=== PATIENT | female | born 1930 | race Caucasian/White ===

== ENCOUNTER 2017-01-01 15:30 | Inpatient (IN) | payer OTHER ==
[~2017-01-01] VITALS: Ht 152.4 cm; Wt 69.5 kg
[2017-01-01] MEDS ORDERED: SOD CHLORIDE 0.9% 1,000 ML IV STA (15:46)
[2017-01-01 15:48] VITALS: Ht 152.4 cm; Wt 69.5 kg
--- NOTE | 2017-01-01 15:56 | ERD ---
ER Documentation Chief Complaint Chief Complaint ALOC found down at home x30min prior to arrival responsive to pain only HPI This 86-year-old female was found down 45 minutes ago by family with unknown last known well time. Per medics arrived and she responds to pain only. They have noted decerebrate posturing. Blood pressure was very high. No other history is provided currently. ROS Unobtainable Allergies Allergies: Coded Allergies: No Known Allergy (Unverified , 01/01/17) Physical Exam Vitals Vital Signs Date Time Temp Pulse Resp B/P Pulse Ox O2 Delivery O2 Flow Rate FiO2 01/01/17 20:14 97.2 76 22 140/82 99 Mechanical Ventilator 01/01/17 19:45 97.2 76 22 141/56 98 Mechanical Ventilator 01/01/17 19:30 97.2 76 22 147/53 98 Mechanical Ventilator 01/01/17 19:15 97.2 74 22 132/54 98 Mechanical Ventilator 01/01/17 19:00 97.2 81 22 134/59 98 Mechanical Ventilator 01/01/17 18:56 80 22 98 100 01/01/17 18:45 96.9 82 20 141/81 100 Mechanical Ventilator 01/01/17 18:18 93 23 218/83 100 Mechanical Ventilator 01/01/17 18:16 94 22 100 100 01/01/17 17:38 91 23 230/116 100 Mechanical Ventilator 01/01/17 17:20 81 22 100 100 01/01/17 17:15 76 22 224/92 100 Mechanical Ventilator 01/01/17 15:48 96.9 70 26 205/107 100 Physical Exam Const: [] Moderate distress, unresponsive, tachypneic Head: Atraumatic Eyes: Normal Conjunctiva, pupils 4 mm and nonreactive, roving eye movements. ENT: Normal External Ears, Nose and Mouth. Neck: Full range of motion..~ No meningismus. Resp: Clear to auscultation bilaterally, tachypnea Cardio: Regular tachycardia no murmurs Abd: Soft,, non distended. Normal bowel sounds Skin: No petechiae or rashes Back: No midline or flank tenderness Ext: No cyanosis, or edema Neur: Decerebrate posturing, no corneal reflex Result Diagram: 01/01/17 1545 01/01/17 1545 Results 24 hrs Laboratory Tests Test 01/01/17 15:45 01/01/17 17:24 01/01/17 17:25 White Blood Count 7.810^3/ul Red Blood Count 4.3110^6/ul Hemoglobin 9.1g/dl Hematocrit 30.0% Mean Corpuscular Volume 69.6fl Mean Corpuscular Hemoglobin 21.1pg Mean Corpuscular Hemoglobin Concent 30.3g/dl Red Cell Distribution Width 14.4% Platelet Count 05231^3/UL Mean Platelet Volume 9.6fl Neutrophils % 51.4% Lymphocytes % 33.8% Monocytes % 8.4% Eosinophils % 5.0% Basophils % 0.8% Nucleated Red Blood Cells % 0.0/100WBC Neutrophils # 4.010^3/ul Lymphocytes # 2.610^3/ul Monocytes # 0.710^3/ul Eosinophils # 0.410^3/ul Basophils # 0.110^3/ul Nucleated Red Blood Cells # 0.010^3/ul Prothrombin Time 12.9Sec Prothrombin Time Ratio 1.0 INR International Normalized Ratio 0.97 Activated Partial Thromboplast Time 25.8Sec Sodium Level 144mmol/L Potassium Level 4.7mmol/L Chloride Level 111mmol/L Carbon Dioxide Level 19mmol/L Anion Gap 19 Blood Urea Nitrogen 34mg/dl Creatinine 1.49mg/dl Glucose Level 144mg/dl Bedside Glucose 126mg/dL Hemoglobin A1c 5.1% Calcium Level 9.0mg/dl Troponin I < 0.012ng/ml Urine Color COLORLESS Urine Clarity CLEAR Urine pH 7.0 Urine Specific [place] 1.006 Urine Ketones TRACEmg/dL Urine Nitrite NEGATIVEmg/dL Urine Bilirubin NEGATIVEmg/dL Urine Urobilinogen NEGATIVEmg/dL Urine Leukocyte Esterase NEGATIVELeu/ul Urine Microscopic RBC 1/HPF Urine Microscopic WBC 0/HPF Urine Hemoglobin 1+mg/dL Urine Glucose 1+mg/dL Urine Total Protein 1+mg/dl Urine Opiates Screen Negative Urine Barbiturates Negative Urine Amphetamines Screen Negative Urine Benzodiazepines Screen Negative Urine Cocaine Screen Negative Urine Cannabinoids Negative Current Medications Medications (Trade) Dose Ordered Sig/Mahad Route PRN Reason Start Time Stop Time Status Last Admin Dose Admin Sodium Chloride (NS) 1,000 ml @ 1,000 mls/hr Q1H STAT IV 01/01/17 15:46 01/01/17 16:45 DC 01/01/17 16:07 Hydralazine HCl 10 mg 10 mg ONCE ONCE IV 01/01/17 16:00 01/01/17 16:01 DC 01/01/17 16:07 Mannitol 250 ml @ 0 mls/hr ONCE ONCE IV 01/01/17 16:00 01/01/17 16:01 DC 01/01/17 17:15 Propofol (Diprivan) 100 ml @ 0 mls/hr TITRATE ONCE IV 01/01/17 16:00 01/01/17 16:01 DC 01/01/17 16:16 Hydralazine HCl 10 mg 10 mg ONCE ONCE IV 01/01/17 18:00 01/01/17 18:01 DC 01/01/17 17:48 Nicardipine HCl 200 ml @ 50 mls/hr TITRATE IV 01/01/17 18:00 01/01/17 18:11 Nicardipine HCl/ Sodium Chloride (Cardene Iv/NS) 250 ml @ 50 mls/hr PER PROTOCOL IV 01/01/17 20:00 Acetaminophen (Tylenol Tab) 650 mg Q4H PRN PO TEMP GREATER THAN 99.6F 01/01/17 20:00 Ondansetron HCl (Zofran Inj) 4 mg Q6H PRN IV NAUSEA AND/OR VOMITING 01/01/17 20:00 Acetaminophen (Tylenol Liquid) 650 mg Q6H PRN PO PAIN LEVEL 1-3 OR FEVER 01/01/17 20:00 Acetaminophen (Tylenol Supp) 650 mg Q4H PRN [place] PAIN LEVEL 1-3 OR FEVER 01/01/17 20:00 Morphine Sulfate (morphine) 2 mg Q4H PRN IV PAIN LEVEL 7-10 01/01/17 20:00 Lorazepam (Ativan) 1 mg Q2H PRN IV SEIZURES 01/01/17 20:00 Docusate Sodium (Colace) 100 mg Q12H PRN PO CONSTIPATION 01/01/17 20:00 Magnesium Hydroxide (Milk Of Mag) 30 ml DAILY PRN PO CONSTIPATION 01/01/17 20:00 Bisacodyl (Dulcolax Supp) 10 mg DAILY PRN [place] CONSTIPATION 01/01/17 20:00 Famotidine (Pepcid Iv) 20 mg Q24H IV 01/01/17 21:00 Procedures/MDM Catastrophic intracranial hemorrhage. On arrival the patient was immediately taken to CT and then intubated for airway protection and hyperventilation. IV mannitol was given and head of bed was immediately elevated. Repeat neuro exam showed unequal pupils with one pupil was 4 mm and the other one is 3 mm. I spoke with Dr. Reyes, who reviewed the films and that combined with unequal pupils believes that this patient is already herniated. He spoke with the family. Patient ws also extremely hypertensive. Given a dose of adjustments temporary load her blood pressure which returned. She is given another dose of hydralazine then I did in a car to pain drip. Family does not want to make a decision about withdrawing care at this time as relayed by Dr. Reyes. Be admitted to the ICU for further care. , is admitting saw the patient at the bedside After intubation patient was initially intubated the right mainstem bronchus with atelectasis of left lung. Tube was withdrawn and showed improving aeration. Tube was then again further withdrawn show good aeration of the left lung EKG interpretation: Paced rhythm rate of 61, normal axis, no ST elevations or depressions concerning for acute ischemia. Possible biphasic T waves or U waves in precordial leads. youth nutritional monitor interpretation: Paced rhythm with no other arrhythmia Chest x-ray interpretation: Left lung l opacified with ET tube in the right mainstem bronchus., No pneumothorax, no widened mediastinum, no fractures Chest x-ray interpretation #2:: Improved aeration of left lung. Tubes still is very close to the right mainstem bronchus and I believe needs to be withdrawn, no pneumothorax, no infiltrates, no fractures. CT head interpretation: Large intracranial hemorrhage as well as small subdural hemorrhage, one-point centimeter midline shift, ET intubation note: Preoxygenated with bag mask ventilation, size 7.5 ET tube was easily introduced through visualized cords using a MAC 4 blade. Confirmed by end-tidal CO2 change. Patient tolerated procedure well there no complications [id number] after procedure. Postintubation checks x-ray shows tube in the right mainstem bronchus. Care time greater than 35 minutes: This includes treatment of intracranial hemorrhage with mass-effect and severe hypertension, ventilator management and use of hyperventilation, use of mannitol, use of propofol drip, use of 2 doses of hydralazine and nicardipine drip for severe hypertension, discussion with family, discussion with neurosurgeons, discussion with admitting doctor, chart review. This does not include any billable procedures. Departure Diagnosis: Primary Impression: Intracranial hemorrhage Additional Impressions: Midline shift of brain Hypertensive crisis Renal insufficiency Condition: Critical KAMRAN MI DO Jan 01, 2017 15:56
[2017-01-01] MEDS ORDERED: ETOMIDATE 20 MG INJ ONE (16:00)
[2017-01-01] MEDS ORDERED: ROCURONIUM 50 MG INJ ONE (16:00)
[2017-01-01] MEDS ORDERED: MANNITOL 20% 250 ML IV ONE (16:00)
[2017-01-01] MEDS ORDERED: PROPOFOL 100 ML IV ONE (16:00)
[2017-01-01] MEDS ORDERED: hydrALAzine 20 MG INJ IV ONE ×2 (16:00→18:00)
--- NOTE | 2017-01-01 16:06 | RADRPT ---
PROCEDURE: CT Brain without contrast. CLINICAL INDICATION: Code stroke TECHNIQUE: A CT of the brain was performed on a multidetector CT scanner utilizing axial sections from the skull base through the vertex without contrast. Images were reviewed on a high-resolution [employer] workstation. Exam CTDI = 44.97 mGy and the DLP = 720.23 mGy-cm. One or more of the following dose reduction techniques were used: Automated exposure control Adjustment of the mA and/or kV according to patient size. Use of iterative reconstruction technique. COMPARISON: None available FINDINGS: There is a large intraparenchymal hematoma in the left frontal parietal lobe measuring 7.6 x 5.3 x 6 cm (AP x cc x transverse. Multiple smaller surrounding intraparenchymal hemorrhage are seen in the right frontal and left parietal lobes. There is significant mass effect upon the left lateral ventri kavita with 1.5 cm rightward midline shift. There is subfalcine herniation. Suprasellar cistern is del castillo nt. There is thin left frontal subdural hemorrhage measures up to 2 mm in thickness. There is mild v asogenic edema around the dominant intraparenchymal hemorrhage. There is no intraventricular hemorrh age. There is mild dilatation of the right lateral ventricle. The density of the brain is normal an d the avitia/white matter differentiation is well preserved. Mild patchy diffuse deep white matter mi croangiopathic ischemic change is seen. The osseous structures are unremarkable. Paranasal sinus es are clear. Vascular calcifications are identified. IMPRESSION: 1. Large intraparenchymal hematoma in the left frontal parietal lobe measuring 5.3 x 6 x 7.6 cm. Mu ltiple additional smaller intraparenchymal hemorrhages are seen in the left frontal and left parieta l lobes. Mild surrounding vasogenic edema with significant mass effect upon the left lateral ventric le and 1.5 cm rightward midline shift. No intraventricular hemorrhage. 2. Thin left frontal subdural hemorrhage measures up to 2 mm in thickness. 3. Prominent temporal horn of the right lateral ventricle suggesting trapped ventricle. 4. Mild to moderate chronic microvascular ischemic changes. 5. Intracranial atherosclerosis. RPTAT: BB .Altagracia Deleon MD, MD Date Time Electronically viewed and signed by .Altagracia Deleon MD, on 01/01/2017 16:05 .O/
--- NOTE | 2017-01-01 16:40 | RADRPT ---
PROCEDURE: XR Chest. CLINICAL INDICATION: Status post intubation TECHNIQUE: Single portable view of the chest was obtained COMPARISON: none FINDINGS: There is a new endotracheal tube within the right mainstem bronchus. There is mild cardiomegaly. Thoracic aorta is calcified. There are patchy left upper lobe and left lower lobe infiltrates and left pleural effusion. There is a left-sided pacemaker in place. RPTAT: AA IMPRESSION: New endotracheal tube within the right mainstem bronchus. Retraction of 5 cm is recommended. Patchy left lung infiltrates and left pleural effusion. Mild cardiomegaly. A call report was made and the findings discussed with Joshua Harden at 01/01/2017 4:31:21 PM. .Lavon Moseley MD, MD Date Time Electronically viewed and signed by .Lavon Moseley MD, on 01/01/2017 16:39 .S/
--- NOTE | 2017-01-01 18:03 | RADRPT ---
PROCEDURE: XR Chest. CLINICAL INDICATION: Check endotracheal tube position. TECHNIQUE: Single frontal view. COMPARISON: 01/01/2017. 1618 hours. FINDINGS: The endotracheal tube has been retracted but the tip is still in the right mainstem bronchus. This s hould be pulled back approximately 2 cm. There is improved aeration of the left lung. However, there is still asymmetry with decreased aeration of the left lung. There is diffuse interstitial disease bilaterally consistent with pulmonary edema. The heart size is normal. There is calcification in the aorta consistent with atherosclerosis. There is a left-sided dual lead permanent pacemaker. There is no right pleural effusion. There is a small left pleural effusion. There is no pneumothorax. IMPRESSION: 1. The endotracheal tube should be retracted an additional 2 cm. 2. Improved aeration of the left lung. 3. Pulmonary edema. 4. Left-sided dual lead permanent pacemaker. 5. Small left pleural effusion. 6. Otherwise unremarkable chest radiograph. Call report: A call report of the findings was made to Dr. Echavarria on 01/01/2017 at 1805 hours. RPTAT: QQ .Rahul Kraft MD, MD Date Time Electronically viewed and signed by .Rahul Kraft MD, MD on 01/01/2017 18:03 .R/
[2017-01-01] MEDS: niCARdipine-NS 0.1MG/ML DRIP 200 ML IV SCH (18:11)
--- NOTE | 2017-01-01 19:12 | CONS ---
Date/Time of Note Date/Time of Note DATE: 01/01/17 TIME: 17:45 Assessment/Plan Assessment/Plan Additional Assessment/Plan Date of note: 01/01/2017 I was contacted by Dr. Echavarria in the emergency department regarding a 86-year- old right handed female with past medical history significant for hypertension, hypercholesterolemia, cardiac arrhythmia status post pacemaker placement who was found unresponsive several hours ago by her family. At the time of arrival to the emergency department by paramedics the patient was found to be extensor posturing and pupils on the left are 4-5mm unreactive and on the right 3-4mm and unreactive. The patient was intubated for airway protection but appears to have some breathing over the vent. I immediately reviewed the patient's CT of the head without contrast that shows a large left frontoparietal temporal intraparenchymal hemorrhage with close to 1.5 cm [id number] midline shift with left uncal herniation and effacement of the basal cisterns consistent with impending transtentorial herniation. There are several family members in the emergency department including the patient's grandson, Los who identified himself as the speaker for the family says he says he is the most educated out of all the family members. Los lives with the patient and tells me that she is able to do some basic activities of daily living on her own however mostly today she sitting down and watching television. A complete past medical history of the patient is unknown by the family members and unsure the reason for the patient's aspirin that she was taking in the past. However she has not been taking any aspirin recently. I Had an extensive discussion with Los regarding the devastating hemorrhage that his grandmother has sustained on the dominant side of the brain responsible for speech and understanding. I have also explained to the grandson that the hemorrhage has caused a very large left- to-right midline shift and the brain causing brain herniation and severe and usually irreversible injury to the brain stem as demonstrated by the patient's very poor presenting neurologic exam as discussed above. Unfortunately, there is no neurosurgical intervention possible to undo the devastating injury that has occurred to the patient as a result of the hemorrhagic stroke. There is no neurosurgical intervention possible to allow the patient to have any reasonable chance of meaningful recovery as the patient's grandson and family are hoping that she would be able to go back home and watch TV and do the normal activities that she used to do. Los and the family appear to however be very reasonable as to their expectations. When I asked what the patient's wishes would've been in a terrible situation such as this, Los tells me that "she would want to go to [facility]." He has also asked me as to what are the other choices aside from surgery. I have explained to him that at this point the point is receiving supportive care including ventilatory support. He tells me that being on the ventilator is most likely what the patient would have wanted and the family is leaning toward comfort measures. I have explained to Los that he and the family can think about this choice more and do not have to make a choice right away. In addition, I have indicated to Los that the patient's serum sodium is already 144 (greater than 140) and further hypertonic saline treatment that can be started in cases of relative hyponatremia would not be of benefit in this case. Luis Antonio is very understanding and appreciative of the explanations. He and his family can contact me at anytime if I can be of any further help. SHERIN BALBUENA MD Jan 01, 2017 19:12
[2017-01-01] MEDS ORDERED: ACETAMINOPHEN 650MG/20.3ML CUP PO PRN (20:00)
[2017-01-01] MEDS ORDERED: MAGNESIUM HYDROXIDE 30ML CUP PO PRN (20:00)
[2017-01-01] MEDS ORDERED: BISACODYL 10 MG SUPP PR PRN (20:00)
[2017-01-01] MEDS ORDERED: ONDANSETRON 4 MG INJ IV PRN (20:00)
[2017-01-01] MEDS ORDERED: DOCUSATE SODIUM 100 MG CAP PO PRN (20:00)
[2017-01-01] MEDS ORDERED: LORAZEPAM 2 MG INJ IV PRN (20:00)
[2017-01-01] MEDS ORDERED: ACETAMINOPHEN 325 MG TAB PO PRN (20:00)
[2017-01-01] MEDS ORDERED: ACETAMINOPHEN 650 MG SUPP PR PRN (20:00)
[2017-01-01] MEDS ORDERED: morphine 2 MG INJ IV PRN (20:00)
--- NOTE | 2017-01-01 20:03 | HP ---
Date/Time of Note Date/Time of Note DATE: 01/01/17 TIME: 19:41 Assessment/Plan VTE Prophylaxis VTE Prophylaxis Intervention: SCD's Lines/Catheters IV [facility] (from [facility] Saline Lock Assessment/Plan Assessment/Plan 86-year-old female with: 1. Large left frontoparietal temporal intraparenchymal hemorrhage with 1.5 cm left to right midline shift, left uncal herniation and impending transtentorial herniation. Current neurological status extremely poor, prognosis dismal, however the patient already intubated, family still figuring out goals of care. Continue supportive care, patient on nicardipine drip for blood pressure control with goal systolic blood pressure less than 140 Continue mechanical ventilation Monitor for seizures Keep Na greater than 140 Dr Espana following 2. Hypertensive emergency with unfortunately catastrophic large left frontoparietal temporal intraparenchymal hemorrhage with impending transtentorial herniation Continue nicardipine drip, additional as needed labetalol or hydralazine if needed Goal systolic blood pressure less than 140 3. Acute respiratory failure, insetting of severe encephalopathy secondary to intracranial bleed. Patient intubated primarily for airway protection. 4. Arrhythmia, status post pacemaker, patient is currently a paced. 5. Acute kidney injury versus chronic kidney disease, it is unclear what the patient baseline renal function is. For now avoiding hypotonic or isotonic fluids. Goal to maintain sodium level of 140. If sodium drops any further will need hypertonic saline. Follow-up in a.m. lab Prophylaxis: Pepcid for GI prophylaxis, SCDs to lower extremity for DVT prophylaxis Disposition: Follow-up with family in a.m. regarding goals of care, will encourage comfort measures. In the meantime patient is still full code but likely to decompensate further as she is herniating. Family is aware. Dr. Espana following, Dr. Mendoza to be consulted for vent management. HPI/ROS Admit Date/Time Admit Date/Time Hx of Present Illness Chief complaint: Unresponsiveness History of presenting illness: This is a 86-year-old female with unknown past medical history except for noted pacemaker in place for likely history of arrhythmia, likely also hypertension, brought in by family after being found unresponsive for 45 mins, also found to be in hypertensive emergency with systolic blood pressures above 200. Patient is obviously unable to give any history, also family at the bedside does not seem to be aware of much of her medical illness. The patient's grandson son who is Chinese-speaking and spokesman for the family has given most of the history. During my exam the grandson was not present therefore history is obtained from documentation from neurosurgery, Dr. Espana, and ER physician. Per records, again the patient does have a pacemaker, has been on aspirin apparently for unclear reason as an outpatient, she was found this afternoon unresponsive by family in front of the TV. It seems like she was unresponsive for almost an hour. Per EMS documentation the patient was withdrawing to pain upon arrival but otherwise unresponsive. Per emergency department documentation upon arrival in the ER, the patient was noted to have decerebrate posturing, mostly nonreactive pupils and no corneal reflex. She was intubated for airway protection, she is currently breathing over the vent and was started on propofol. She is also on nicardipine drip for blood pressure control. CAT scan of the brain showed a large left frontoparietal temporal intraparenchymal hemorrhage with close to 1.5 cm left to right midline shift, left uncal herniation and effacement effacement of the basal cisterns consistent with impending transtentorial herniation. Patient has been evaluated by Dr. Espana from neurosurgery, at this point there is no neurosurgical intervention that can be offered. Patient's prognosis is dismal, she does have a massive, catastrophic intracranial bleed with extremely poor neurological status. Dr. Espana has talked to the family, and specifically to [place] the patient's grandson, for now the family is discussing goal of care and possible withdrawal of care and comfort measures. In the meantime the patient remains full code, she is intubated and again on nicardipine drip for blood pressure control and propofol. ROS Unable to obtain. PMH/Family/Social Past Medical History Unfortunately very minimal information regarding past medical history, family does not seem to be very familiar, patient however is noted to have a pacemaker. Past Surgical History Status post pacemaker placement Family History Significant Family History: no pertinent family hx Social History Unknown Smoking Status: Never smoker Exam/Review of Systems Vital Signs Vitals Vital Signs Date Time Temp Pulse Resp B/P Pulse Ox O2 Delivery O2 Flow Rate FiO2 01/01/17 18:56 80 22 98 100 01/01/17 18:45 96.9 141/81 Mechanical Ventilator Exam Constitutional: frail, other (Unresponsive) ENMT: other (Left pupil fixed approximately 5 mm, right 2 pills seems to be fixed also approximately 2-3 mm) Respiratory: clear to auscultation, other (Mechanical ventilation) Cardiovascular: nl pulses, other (Paced rhythm, left upper chest pacemaker noted .), regular rate and rhythm Gastrointestinal: non-tender, soft Musculoskeletal: nl extremities to inspection, other (No edema, clubbing or cyanosis) Extremities: normal pulses Neurological: lethargic, other (Intubated, on propofol, seems to be posturing on and off.) Labs Result Diagram: 01/01/17 1545 01/01/17 1545 Medications Medications Current Medications Nicardipine HCl (Cardene Iv) 200 ml @ 50 mls/hr TITRATE IV Last administered on 01/01/17t 18:11; Admin Dose 50 MLS/HR; Start 01/01/17 at 18:00 Acetaminophen (Tylenol Tab) 650 mg Q4H PRN PO TEMP GREATER THAN 99.6F; Start 01/01/17 at 20:00; Status UNV Ondansetron HCl (Zofran Inj) 4 mg Q6H PRN IV NAUSEA AND/OR VOMITING; Start 01/01/17 at 20:00; Status UNV Acetaminophen (Tylenol Liquid) 650 mg Q6H PRN PO PAIN LEVEL 1-3 OR FEVER; Start 01/01/17 at 20:00; Status UNV Acetaminophen (Tylenol Supp) 650 mg Q4H PRN [place] PAIN LEVEL 1-3 OR FEVER; Start 01/01/17 at 20:00; Status UNV Morphine Sulfate (morphine) 2 mg Q4H PRN IV PAIN LEVEL 7-10; Start 01/01/17 at 20:00; Status UNV Lorazepam (Ativan) 1 mg Q2H PRN IV SEIZURES; Start 01/01/17 at 20:00; Status UNV Docusate Sodium (Colace) 100 mg Q12H PRN PO CONSTIPATION; Start 01/01/17 at 20: 00; Status UNV Magnesium Hydroxide (Milk Of Mag) 30 ml DAILY PRN PO CONSTIPATION; Start at 20:00; Status UNV Bisacodyl (Dulcolax Supp) 10 mg DAILY PRN [place] CONSTIPATION; Start 01/01/17 at 20 :00; Status UNV Famotidine (Pepcid Iv) 20 mg Q12 IV ; Start 01/01/17 at 21:00; Status UNV Procedures Procedures PROCEDURE: CT Brain without contrast. CLINICAL INDICATION: Code stroke TECHNIQUE: A CT of the brain was performed on a multidetector CT scanner utilizing axial sections from the skull base through the vertex without contrast. Images were reviewed on a high-resolution PACS workstation. Exam CTDI = 44.97 mGy and the DLP = 720.23 mGy-cm. One or more of the following dose reduction techniques were used: Automated exposure control Adjustment of the mA and/or kV according to patient size. Use of iterative reconstruction technique. COMPARISON: None available FINDINGS: There is a large intraparenchymal hematoma in the left frontal parietal lobe measuring 7.6 x 5.3 x 6 cm (AP x cc x transverse. Multiple smaller surrounding intraparenchymal hemorrhage are seen in the right frontal and left parietal lobes. There is significant mass effect upon the left lateral ventricle with 1.5 cm rightward midline shift. There is subfalcine herniation. Suprasellar cistern is patent. There is thin left frontal subdural hemorrhage measures up to 2 mm in thickness. There is mild vasogenic edema around the dominant intraparenchymal hemorrhage. There is no intraventricular hemorrhage. There is mild dilatation of the right lateral ventricle. The density of the brain is normal and the avitia/white matter differentiation is well preserved. Mild patchy diffuse deep white matter microangiopathic ischemic change is seen. The osseous structures are unremarkable. Paranasal sinuses are clear. Vascular calcifications are identified. IMPRESSION: 1. Large intraparenchymal hematoma in the left frontal parietal lobe measuring 5.3 x 6 x 7.6 cm. Multiple additional smaller intraparenchymal hemorrhages are seen in the left frontal and left parietal lobes. Mild surrounding vasogenic edema with significant mass effect upon the left lateral ventricle and 1.5 cm rightward midline shift. No intraventricular hemorrhage. 2. Thin left frontal subdural hemorrhage measures up to 2 mm in thickness. 3. Prominent temporal horn of the right lateral ventricle suggesting trapped ventricle. 4. Mild to moderate chronic microvascular ischemic changes. 5. Intracranial atherosclerosis. RPTAT: BB .Altagracia Deleon MD, Date Time Electronically viewed and signed by .Altagracia Deleon MD, on 01/01/2017 16:05 PROCEDURE: XR Chest. CLINICAL INDICATION: Check endotracheal tube position. TECHNIQUE: Single frontal view. COMPARISON: 01/01/2017. 1618 hours. FINDINGS: The endotracheal tube has been retracted but the tip is still in the right mainstem bronchus. This should be pulled back approximately 2 cm. There is improved aeration of the left lung. However, there is still asymmetry with decreased aeration of the left lung. There is diffuse interstitial disease bilaterally consistent with pulmonary edema. The heart size is normal. There is calcification in the aorta consistent with atherosclerosis. There is a left-sided dual lead permanent pacemaker. There is no right pleural effusion. There is a small left pleural effusion. There is no pneumothorax. IMPRESSION: 1. The endotracheal tube should be retracted an additional 2 cm. 2. Improved aeration of the left lung. 3. Pulmonary edema. 4. Left-sided dual lead permanent pacemaker. 5. Small left pleural effusion. 6. Otherwise unremarkable chest radiograph. Call report: A call report of the findings was made to Dr. Echavarria on 01/01/2017 at 1805 hours. RPTAT: QQ .Rahul Kraft MD, MD Date Time Electronically viewed and signed by .Rahul Kraft MD, MD on 01/01/2017 18:03 ARUN SAMUELS Jan 01, 2017 19:55
[2017-01-01] MEDS ORDERED: SOD CHLORIDE 0.9% 500 ML IV ONE (21:00)
[2017-01-01] MEDS ORDERED: FAMOTIDINE 20 MG INJ IV SCH (21:00)
--- NOTE | 2017-01-01 23:24 | RADRPT ---
PROCEDURE: XR Chest. CLINICAL INDICATION: Endotracheal tube adjustment. TECHNIQUE: Single frontal chest x-ray. COMPARISON: 01/01/2017 FINDINGS: Endotracheal tube tip is at the level of the aortic knob, 4.7 cm above janette. Left subclavian biven tricular pacemaker is unchanged. Heart is normal in size.. There is mild pulmonary vascular congest ion, unchanged. Unchanged left pleural effusion with basilar atelectasis.. There is no pneumothorax . Bones are osteopenic.. IMPRESSION: Endotracheal tube tip retracted now at the level aortic knob. Otherwise no change. RPTAT: HMVK .Jesus Sanchez MD, MD Date Time Electronically viewed and signed by .Jesus Sanchez MD, MD on 01/01/2017 23:24 .K/
[2017-01-02] VITALS (27 sets, daily range): BP systolic 0–143; BP diastolic 0–88; PULSE 0–98; RESP 22–32; TEMP 98
[2017-01-02] MEDS ORDERED: PROPOFOL 100 ML ONE (05:24)
[2017-01-02] MEDS: niCARdipine 25 MG in SOD CHLORIDE 0.9% 240 ML IV SCH ×2 (06:03→06:22)
[2017-01-02] MEDS: niCARdipine-NS 0.1MG/ML DRIP 200 ML IV SCH (08:51)
--- NOTE | 2017-01-02 10:18 | RADRPT ---
PROCEDURE: XR Chest. CLINICAL INDICATION: intubated TECHNIQUE: Single portable view of the chest was obtained COMPARISON: DR PULLIAM 01/01/2017 FINDINGS: Endotracheal tube terminates 2.5 cm above the janette. Enteric tube extends below the left hemidiaphr agm. A left-sided dual chamber AICD is present with leads overlying the right atrium and right ventr icle. The cardiomediastinal silhouette is stable in size and configuration. Thoracic aortic atherosc lerotic degenerate changes are present. There is decreased pulmonary vascular congestion. Persistent small left-sided pleural effusion and atelectasis are present. IMPRESSION: 1. Decreased pulmonary vascular congestion. 2. Small left-sided pleural effusion at the base atelectasis. 3. Endotracheal and enteric tubes in satisfactory position. 4. Aortic atherosclerotic degenerative changes. RPTAT: HRSR Physician Ashley Date Time Electronically viewed and signed by Physician Ashley on 01/02/2017 10:17 RR/
--- NOTE | 2017-01-02 11:35 | PN ---
Date/Time of Note Date/Time of Note DATE: 01/02/17 TIME: 11:09 Assessment/Plan VTE Prophylaxis VTE Prophylaxis Intervention: SCD's Lines/Catheters IV [facility] Type (from [facility]): Saline Lock Assessment/Plan Assessment/Plan 86-year-old female with: 1. Massive left frontoparietal temporal intraparenchymal hemorrhage with 1.5 cm left to right midline shift, left uncal herniation and likely transtentorial herniation by now, patient with a fixed and dilated pupils, nonresponsive, not breathing over the vent. Appreciate assistance from Dr. Mendosa, he has updated family also, no hope, patient unresponsive with fixed dilated pupils, likely herniated. Family is waiting for more family members to come and will plan for withdrawal of care today. Continue mechanical ventilation for now, propofol discontinued. Neurosurgery, Dr. Espana, has talked to the family last night. No intervention available, also recommending comfort measures/withdrawal of care. 2. Hypertensive emergency with unfortunately catastrophic large left frontoparietal temporal intraparenchymal hemorrhage with impending transtentorial herniation. Patient not getting hypotensive, again likely herniated and vital signs are becoming less stable. Nicardipine discontinued. 3. Acute respiratory failure, insetting of severe encephalopathy secondary to catastrophic intracranial bleed. Withdrawal of care/comfort measures. 4. Arrhythmia, status post pacemaker, patient is currently a paced. We will plan on deactivating the pacemaker with a magnet when family ready to history of care. 5. Acute kidney injury versus chronic kidney disease, it is unclear what the patient baseline renal function is. Comfort measures Prophylaxis: Pepcid for GI prophylaxis, SCDs to lower extremity for DVT prophylaxis Disposition: Likely has fully herniated, more family to arrive, withdrawal of care today. Patient's primary care physician, Dr. Cazares, updated this morning and aware of the patient's poor condition family is aware. Appreciate assistance from Dr. Espana and Dr. Mendosa. Subjective 24 Hr Interval Summary Free Text/Dictation Turning propofol off, patient currently with pupils fixed and dilated, she is not breathing over the vent. Awaiting more family members for withdrawal of care. Appreciate assistance from Dr. Mendosa, family updated. Exam/Review of Systems Vital Signs Vitals Vital Signs Date Time Temp Pulse Resp B/P Pulse Ox O2 Delivery O2 Flow Rate FiO2 01/02/17 08:45 89 32 121/65 99 Mechanical Ventilator 01/02/17 07:40 98.0 01/02/17 06:22 50 Intake and Output 01/01/17 01/01/17 01/02/17 15:00 23:00 07:00 Intake Total 250 ml Balance 250 ml Exam Constitutional: non-verbal, other (Unresponsive, pupils fixed and dilated) Eyes: other (Pupils fixed and dilated) Respiratory: clear to auscultation, other (On mechanical ventilation, not breathing over the vent) Cardiovascular: other (Paced rhythm), regular rate and rhythm Gastrointestinal: non-tender, soft Musculoskeletal: nl extremities to inspection Extremities: normal pulses, other (No edema, clubbing or cyanosis) Neurological: unresponsive Results Result Diagram: 01/02/1726 01/02/17525 Results 24 hrs Laboratory Tests Test 01/01/17 15:45 01/01/17 17:24 01/01/17 17:25 01/02/17 05:26 White Blood Count 7.8 12.8 #H Red Blood Count 4.31 4.17 L Hemoglobin 9.1 L 8.5 L Hematocrit 30.0 L 28.2 L Mean Corpuscular Volume 69.6 L 67.6 L Mean Corpuscular Hemoglobin 21.1 L 20.4 L Mean Corpuscular Hemoglobin Concent 30.3 L 30.1 L Red Cell Distribution Width 14.4 14.6 H Platelet Count 227 220 Mean Platelet Volume 9.6 10.8 H Neutrophils % 51.4 86.8 H Lymphocytes % 33.8 4.2 L Monocytes % 8.4 7.9 Eosinophils % 5.0 0.2 Basophils % 0.8 0.3 Nucleated Red Blood Cells % 0.0 0.0 Neutrophils # 4.0 11.1 H Lymphocytes # 2.6 0.5 L Monocytes # 0.7 1.0 H Eosinophils # 0.4 0.0 Basophils # 0.1 0.0 Nucleated Red Blood Cells # 0.0 0.0 Prothrombin Time 12.9 14.2 Prothrombin Time Ratio 1.0 1.1 INR International Normalized Ratio 0.97 1.10 Activated Partial Thromboplast Time 25.8 29.0 Sodium Level 144 141 Potassium Level 4.7 3.9 Chloride Level 111 H 112 H Carbon Dioxide Level 19 L 15 L Anion Gap 19 H 18 H Blood Urea Nitrogen 34 H 33 H Creatinine 1.49 H 1.29 H Glucose Level 144 185 Bedside Glucose 126 Hemoglobin A1c 5.1 Calcium Level 9.0 9.5 Troponin I < 0.012 Urine Color COLORLESS Urine Clarity CLEAR Urine pH 7.0 Urine Specific Da[place]hin 1.006 Urine Ketones TRACE A Urine Nitrite NEGATIVE Urine Bilirubin NEGATIVE Urine Urobilinogen NEGATIVE Urine Leukocyte Esterase NEGATIVE Urine Microscopic RBC 1 Urine Microscopic WBC 0 Urine Hemoglobin 1+ H Urine Glucose 1+ H Urine Total Protein 1+ H Urine Opiates Screen Negative Urine Barbiturates Negative Urine Amphetamines Screen Negative Urine Benzodiazepines Screen Negative Urine Cocaine Screen Negative Urine Cannabinoids Negative Phosphorus Level 2.4 L Magnesium Level 2.0 Total Bilirubin 0.9 Direct Bilirubin 0.00 Indirect Bilirubin 0.9 Aspartate Amino Transf (AST/SGOT) 28 Alanine Aminotransferase (ALT/SGPT) 23 Alkaline Phosphatase 109 Total Protein 7.3 Albumin 3.7 Globulin 3.60 H Albumin/Globulin Ratio 1.02 Test 01/02/17 06:00 01/02/17 08:00 Blood Gas Specimen Source Blood arterial Blood arterial Arterial Blood Date Drawn 01/02/2017 6:10:20 AM 01/02/2017 8:27:58 AM Arterial Blood pH (Temp corrected) 7.447 7.409 Arterial Blood pCO2 (Temp correct) 20.1 L 21.1 L Arterial Blood pO2 (Temp corrected) 162.4 H 103.8 H Arterial Blood HCO3 13.6 L 13.0 L Arterial Blood Base Excess -8.8 L -9.9 L Arterial Blood Oxygen Saturation 99.0 97.6 Anthony Test ACCEPTAB ACCEPTAB Arterial Blood Gas Puncture Site Right Radial Right Radial Arterial Blood Carboxyhemoglobin 0.3 0.3 Arterial Blood Methemoglobin 0.2 0.1 Blood Gas A-a O2 Differential 315.1 H 229.0 H Oxyhemoglobin Percent 98.5 97.2 Total Hemoglobin 10.1 L 10.5 L Blood Gas Temperature 37.0 37.0 Blood Gas Respiration Rate 22.0 22.0 Blood Gas Actual Respiration Rate 22 22 Blood Gas Modality VENT - AC VENT - AC FiO2 70.0 50.0 Blood Gas Tidal Volume 450.0 450.0 Blood Gas Low PEEP Setting 5.0 5.0 Blood Gas Notified Whom FATOU Bland Blood Gas Notified Time 01/02/2017 6:19:54 AM 01/02/2017 8:35:35 AM Medications Medications Current Medications Nicardipine HCl (Cardene Iv) 200 ml @ 50 mls/hr TITRATE IV Last administered on 01/02/17 08:51; Admin Dose 100 MLS/HR; Start 01/01/17 at 18:00 Acetaminophen (Tylenol Tab) 650 mg Q4H PRN PO TEMP GREATER THAN 99.6F; Start 01/01/17 at 20:00 Ondansetron HCl (Zofran Inj) 4 mg Q6H PRN IV NAUSEA AND/OR VOMITING; Start 01/01/17 at 20:00 Acetaminophen (Tylenol Liquid) 650 mg Q6H PRN PO PAIN LEVEL 1-3 OR FEVER; Start 01/01/17 at 20:00 Acetaminophen (Tylenol Supp) 650 mg Q4H PRN [place] PAIN LEVEL 1-3 OR FEVER; Start 01/01/17 at 20:00 Morphine Sulfate (morphine) 2 mg Q4H PRN IV PAIN LEVEL 7-10; Start 01/01/17 at 20:00 Lorazepam (Ativan) 1 mg Q2H PRN IV SEIZURES; Start 01/01/17 at 20:00 Docusate Sodium (Colace) 100 mg Q12H PRN PO CONSTIPATION; Start 01/01/17 at 20: 00 Magnesium Hydroxide (Milk Of Mag) 30 ml DAILY PRN PO CONSTIPATION; Start at 20:00 Bisacodyl (Dulcolax Supp) 10 mg DAILY PRN [place] CONSTIPATION; Start 01/01/17 at 20 :00 Famotidine (Pepcid Iv) 20 mg Q24H IV Last administered on 01/01/17 21:00; Admin Dose 20 MG; Start 01/01/17 at 21:00 ARUN SAMUELS Jan 02, 2017 11:19
--- NOTE | 2017-01-02 14:11 | EN ---
Date/Time of Note Date/Time of Note DATE: 01/02/17 TIME: 14:10 Event Note Medicine Medicine Event Note Patient pronounced at 13:50. Pupil fixed and dilated. No evidence of cardiac movement; no spontaneous respiratory drive. Family at the bedside. DAVID MCCORD MD Jan 02, 2017 14:11
--- NOTE | 2017-01-02 15:48 | CONS ---
DATE OF ADMISSION: 01/02/2017 DATE OF CONSULTATION: 01/02/2017 REASON FOR CONSULTATION: Status post intraparenchymal hemorrhage and vent dependence. HISTORY OF PRESENT ILLNESS: Briefly, this is an 86-year-old female with a history of hypertensive h eart disease, hypercholesterolemia, history of a pacer, who was found unresponsive at home and broug ht in by paramedics, noted to be in hypertensive emergency with systolic blood pressures in the 200s . At that point, the patient had a CT brain which showed a large frontotemporal intraparenchymal he morrhage with a 1.5 cm left to right midline shift and with left uncal herniation and effacement of the basal cisterns. The patient was placed on mechanical ventilation and was transferred to the ICU . PAST MEDICAL HISTORY: As noted above. PAST SURGICAL HISTORY: Status post pacemaker placement. FAMILY HISTORY: Noncontributory. SOCIAL HISTORY: Nonsmoker. No alcohol or illicit drug use. FAMILY HISTORY: Nonsignificant. REVIEW OF SYSTEMS: Unable to obtain. PHYSICAL EXAMINATION: VITAL SIGNS: Blood pressure 121/65, oxygen saturation 99%. Heart rate is 89, temperature is 98.0. HEENT: ET tube is in place. Neck is supple. There is no gag. Pupils are fixed and dilated. Ther e is no corneal or oculocephalic reflex. CARDIOVASCULAR: Paced S1 and S2. No murmurs, rubs, or gallops. LUNGS: Clear to auscultation. ABDOMEN: Soft, nontender, no hepatosplenomegaly. EXTREMITIES: No cyanosis, clubbing or edema. NEUROLOGIC: She is flaccid, unresponsive, on the vent. Pupils are fixed and dilated. No gag, no c orneals, no oculocephalic reflex. She is not breathing above the set rate on the ventilator. LABORATORY DATA: ABG: pH is 7.41, pCO2 of 21, pO2 of 104, BUN is 33, creatinine is 1.29. WBC is 1 2.8, hemoglobin 8.5, platelets are 220. CT brain as noted above. IMPRESSION: 1. Status post massive intraparenchymal hemorrhage with associated transtentorial herniation, now w ith clinical evidence of possible brain . RECOMMENDATIONS: I had a long discussion with family and provided them with guidance as to the futi lity of further aggressive management, which they clearly understood. They are at this point awaiti ng more family members to arrive at bedside prior to discontinuation of care and transition to comfo rt measures. In the meantime, we will continue supportive care and will discuss goals of care and t he family's decision with primary physician. Dictated By: DAVID MCCORD MD NK/NTS Conf#: [id number] DID#: [id number] CC: ARUN SAMUELS MD; VIPUL DAHL MD;*EndCC*
== END 2017-01-02 13:15 | disposition expired | DRG 64 ==
LOC: E/R 15:30 → ICU 01-02 08:05
PROVIDERS: ADMIT Internal Medicine; ATTEND Internal Medicine
PROC: 0BH17EZ Insertion of Endotracheal Airway into Trachea, Via Natural or Artificial Opening (ICD-10-PCS; principal; 2017-01-01)
PROC: 5A1935Z Respiratory Ventilation, Less than 24 Consecutive Hours (ICD-10-PCS; 2017-01-01)
DX: I62.00 Nontraumatic subdural hemorrhage, unspecified (principal); J96.00 Acute respiratory failure, unspecified whether with hypoxia or hypercapnia; G93.40 Encephalopathy, unspecified; N17.9 Acute kidney failure, unspecified; I16.1 Hypertensive emergency; E78.5 Hyperlipidemia, unspecified; I12.9 Hypertensive chronic kidney disease with stage 1 through stage 4 chronic kidney disease, or unspecified chronic kidney disease; N18.9 Chronic kidney disease, unspecified; Z95.0 Presence of cardiac pacemaker
CPT/HCPCS: 31500; 36415; 36600; 70450; 71010; 80048; 80053; 80307; 81001; 82803; 82962; 83036; 83735; 84100; 84484; 85025; 85610; 85730; 87081; 93005; 94002; 94003; 96374; 96375; 96376; J0360; J7030; J7040; J7050